=== PATIENT | male | born 1975 | race Caucasian/White ===

== ENCOUNTER 2016-11-18 14:34 | Outpatient (CLI) | payer BC ==
[2014-06-25 17:21] VITALS: BP 133/75
[2016-11-19 01:57] LABS: VITAMIN D, 25-HYDROXY 21 ng/mL (30-100)
== END 2016-11-18 14:50 ==
LOC: LAB 14:34
PROVIDERS: ATTEND Physician Assistant
DX: R53.83 Other fatigue (principal); R06.02 Shortness of breath
CPT/HCPCS: 36415; 82306; 82607; 83735; 86140

== ENCOUNTER 2016-11-19 14:41 | Outpatient (CLI) | payer BC ==
[2014-06-25 17:21] VITALS: BP 133/75
[2016-11-19] MEDS ORDERED: ALBUTEROL SULFATE 2.5 MG/3 ML AMPUL.NEB NEB ONE (15:00)
== END 2016-11-19 14:45 | disposition home or self-care (01) ==
LOC: RT 14:41
PROVIDERS: ATTEND Physician Assistant
DX: R06.02 Shortness of breath (principal)
CPT/HCPCS: 94060

== ENCOUNTER 2017-03-05 07:54 | Outpatient (CLI) | payer BC ==
[2014-06-25 17:21] VITALS: BP 133/75
[2017-03-05 08:08] LABS: BASOPHILS % 0.9 (0.0-1.5); EOSINOPHILS % 2.2 % (0.0-6.8); MEAN CORPUSCULAR HEMOGLOBIN 30.5 pg (28.0-34.0); MEAN CORPUSCULAR VOLUME 85.7 fl (80.0-100.0); MONOCYTES % 6.2 % (0.0-11.0); NEUTROPHILS # 7.2 # k/uL (1.4-7.7)
[2017-03-05 08:47] LABS: eGFR (African) > 60; eGFR (Non-African) > 60
== END 2017-03-05 07:55 ==
LOC: LAB 07:54
PROVIDERS: ATTEND Physician Assistant
DX: E66.9 Obesity, unspecified (principal); R53.83 Other fatigue; Z00.00 Encounter for general adult medical examination without abnormal findings; Z68.43 Body mass index [BMI] 50.0-59.9, adult; E55.9 Vitamin D deficiency, unspecified
CPT/HCPCS: 36415; 80053; 80061; 82306; 84443; 85025

== ENCOUNTER 2017-09-09 08:53 | Outpatient (CLI) | payer BC ==
[2014-06-25 17:21] VITALS: BP 133/75
[2017-09-09 09:29] LABS: eGFR (African) > 60; eGFR (Non-African) > 60
[2017-09-09 09:37] LABS: BASOPHILS % 0.6 (0.0-1.5); EOSINOPHILS % 2.5 % (0.0-6.8); MEAN CORPUSCULAR HEMOGLOBIN 30.3 pg (28.0-34.0); MEAN CORPUSCULAR VOLUME 88.6 fl (80.0-100.0); MONOCYTES % 3.5 % (0.0-11.0)
== END 2017-09-09 08:54 ==
LOC: LAB 08:53
PROVIDERS: ATTEND Physician Assistant
DX: E78.00 Pure hypercholesterolemia, unspecified (principal); R06.01 Orthopnea; E66.9 Obesity, unspecified; R05 Cough
CPT/HCPCS: 36415; 80053; 80061; 83036; 83880; 85025

== ENCOUNTER 2017-10-17 11:12 | Outpatient (CLI) | payer BC ==
[2014-06-25 17:21] VITALS: BP 133/75
--- NOTE | 2017-10-17 19:28 | Diagnostic Imaging Report ---
GOMEZ NAVAS [facility] [address] [facility] [address] Report Submission Date: October 17, 2017 11:46:40 AM CDT Patient Study Name: JOCE PLUMMER Date: October 17, 2017 11:23:26 AM CDT Modality Type: DX Gender: M Description: SHOULDER : 77 Institution: [facility] Physician: GOMEZ NAVAS Examination: Plain film right shoulder History: RT SHOULDER, PAIN IN RT SHOULDER AFTER PULLING INJURY A WEEK AGO (Hx) Comparison exams: None provided Findings: 3 views of the right shoulder demonstrate normal cortical margins. No evidence for fracture or dislocation. Acromioclavicular joint degenerative changes. No soft tissue abnormality Impression: Acromioclavicular joint degenerative changes. No acute osseous process. If suspect soft tissue injury, consider obtaining MRI to further evaluate. Electronically signed on October 17, 2017 11:46:40 AM CDT by: Amrit SILVESTRE
== END 2017-10-17 12:35 ==
LOC: RAD 11:12
PROVIDERS: ATTEND Physician Assistant
DX: M25.511 Pain in right shoulder (principal); R29.898 Other symptoms and signs involving the musculoskeletal system
CPT/HCPCS: 73030

== ENCOUNTER 2018-01-29 09:29 | Outpatient (CLI) | payer OTHER ==
[2014-06-25 17:21] VITALS: BP 133/75
== END 2018-01-29 09:30 ==
LOC: RAD 09:29
PROVIDERS: ATTEND Physician Assistant
DX: R53.83 Other fatigue (principal); W57.XXXA Bitten or stung by nonvenomous insect and other nonvenomous arthropods, initial encounter; Y92.9 Unspecified place or not applicable; Y93.9 Activity, unspecified; Y99.9 Unspecified external cause status
CPT/HCPCS: 36415; 84443; 86618; 86666; 86757

== ENCOUNTER 2018-02-03 09:25 | Outpatient (CLI) | payer OTHER ==
[2014-06-25 17:21] VITALS: BP 133/75
--- NOTE | 2018-02-03 16:25 | Diagnostic Imaging Report ---
GOMEZ NAVAS [facility] [address] [facility].[address] [address] Report Submission Date: Feb 03, 2018 10:50:23 AM CDT Patient Study Name: JOCE PLUMMER Date: Feb 03, 2018 9:53:07 AM CDT Modality Type: US Gender: M Description: US RUQ : 77 Institution: [facility] Physician: GOMEZ NAVAS Examination: Ultrasound gallbladder History: Ruq pain and nausea Findings: Sonographic evaluation of the right upper quadrant demonstrates a limited examination due to poor transducer penetration. Gallbladder without definite stones or sludge. Gallbladder wall does not appear to be thickened. Common bile duct not visualized. No intrahepatic biliary dilation. Liver demonstrates increased echogenicity. No mass or cyst. Right kidney without obvious cortical abnormality. No hydronephrosis. Pancreatic region without gross irregularity. Impression: Limited examination. No definite gallstone. Mildly fatty liver. Electronically signed on Feb 03, 2018 10:50:23 AM CDT by: Amrit SILVESTRE
== END 2018-02-03 09:26 ==
LOC: RAD 09:25
PROVIDERS: ATTEND Physician Assistant
DX: R10.11 Right upper quadrant pain (principal)
CPT/HCPCS: 76705

== ENCOUNTER 2018-03-02 12:37 | Outpatient (CLI) | payer OTHER ==
[2014-06-25 17:21] VITALS: BP 133/75
--- NOTE | 2018-03-03 11:40 | OP Clinic Progress Note ---
SUBJECTIVE: Carol Good is a 43-year-old male who was seen in the clinic recently for a left great ingrown toenail. The patient has had pain and discomfort with this toe along the medial border for a little while now. The patient has elected to come today for an in-office procedure to remove the medial border of the left great toenail with a small surgical procedure. We discussed the patient's smoking status currently and he states that he has not smoked today and I encouraged him strongly to not smoke for the next week to [id number] while we try and heal this wound, as I am concerned for healing potential at this time. We discussed the importance of not smoking and that I would prefer to wait and not do the procedure yet if it is not very painful for him at this time, so that we can have more time not smoking before doing the procedure. The patient has had lots of pain, however, and he wishes to go forward with the procedure at this time understanding the risks of nonhealing and infection due to the smoking. His vital signs show a heart rate of 93, BP: 153/99, R: 18, T: 97.6 degrees. Oxygen saturation is 94%. Pain is zero out of 10. We discussed the blood pressure and the patient states that last time it was slightly high too and then when he went to a subsequent appointment, it was low, and he believes that it is just due to nervousness. We discussed this at length together. The patient does not admit to any fevers, chills, nausea, vomiting, shortness of breath, or chest pain. OBJECTIVE: Vascular Exam: There is 2+ dorsalis pedis and posterior tibial artery left foot pulses. Capillary refill time was less than 3 seconds to the toes of the left foot. No edema is noted of the left foot. Dermatologic Exam: There is a slight bit of hyperkeratotic tissue noted at the distal medial border of the left great toenail area. There is no erythema and there is no open lesions or other hyperkeratoses noted. Musculoskeletal Exam: There is pain on palpation noted to the medial border of the left great toenail at this time. There are no other gross abnormalities noted to the left foot. Neurological Exam: Light touch sensation is intact to the toes of the left foot. ASSESSMENT: 1. Onychocryptosis of left great toenail medial border, noninfected. 2. Smoker. Consent was obtained after having discussed risks and benefits of this procedure with the patient, especially with his smoking status, and the patient has agreed to go forward with the procedure at this time. Consent was signed and placed in the chart. PROCEDURE PERFORMED: Left great toenail, partial toenail medial border avulsion. DESCRIPTION OF PROCEDURE: The left great toe was swabbed with alcohol and injected with 6 mL of a 1:1 mix of 2% lidocaine plain and 0.5% Marcaine plain. On the order sheet, it shows 5 and 5 for those, but we only used 6 total. This was injected and the patient, once after obtaining anesthesia about the toe, was then prepped with Betadine to the left great toe. At this time, the left great toenail medial border was then avulsed utilizing an Setswana Anvil and hemostat and it was checked to make sure that there was no remaining toenail left in that spot. As it was free of any toenail, the site was flushed with copious amount of normal saline. This site was then dressed with triple antibiotic ointment, 4 X 4 gauze, 2-inch Celestino, and 1-inch Coban. Pressure was held to obtain hematosis about the left great toe. The patient tolerated the procedure and anesthesia well. The patient was given instructions regarding removing the bandages tomorrow and washing the foot daily and drying it after a shower. The patient is to dry the toe and apply antibiotic ointment and a Band-Aid daily. The patient was notified that he is not allowed to use his boot today. PLAN: The patient will follow up with us in the clinic in a week to make sure that there is no signs of infection. NEW MATERIALS USED: 1. 2% lidocaine plain. I used 3 mL. 2. 0.5% Marcaine plain. I used 3 mL. 3. Two-inch Celestino. 4. Four-inch gauze. cc: Dr. Delvin SILVESTRE
== END 2018-03-02 12:40 ==
LOC: POD 12:37
PROVIDERS: ATTEND Podiatrist Foot & Ankle Surgery
DX: L60.0 Ingrowing nail (principal); F17.210 Nicotine dependence, cigarettes, uncomplicated
CPT/HCPCS: 11730

== ENCOUNTER 2018-04-28 09:48 | Outpatient (CLI) | payer OTHER ==
[2014-06-25 17:21] VITALS: BP 133/75
[2018-04-28 10:29] LABS: eGFR (Non-African) > 60
== END 2018-04-28 09:50 ==
LOC: LAB 09:48
PROVIDERS: ATTEND Physician Assistant
DX: R73.9 Hyperglycemia, unspecified (principal)
CPT/HCPCS: 36415; 80053; 83036

== ENCOUNTER 2018-07-23 11:31 | Outpatient (CLI) | payer OTHER ==
[2014-06-25 17:21] VITALS: BP 133/75
[2018-07-23 11:45] LABS: BASOPHILS % 1.2 (0.0-1.5); EOSINOPHILS % 2.9 % (0.0-6.8); MEAN CORPUSCULAR HEMOGLOBIN 30.5 pg (28.0-34.0); MONOCYTES % 5.7 % (0.0-11.0); NEUTROPHILS # 6.7 # k/uL (1.4-7.7)
[2018-07-23 12:20] LABS: eGFR (Non-African) > 60
--- NOTE | 2018-07-23 13:12 | Diagnostic Imaging Report ---
FATUMA JONES [facility] [address] [facility] [address] [address] Report Submission Date: Jul 23, 2018 12:52:55 PM POST PRODUCTION ASSISTANT Patient Study Name: JOCE PLUMMER Date: Jul 23, 2018 11:49:51 AM POST PRODUCTION ASSISTANT Modality Type: DX Gender: M Description: CHEST 2VIEW : 77 Institution: [facility] Physician: FATUMA JONES Examination: PA and lateral chest. History: Evaluate lung lang. CHEST PAIN AND CONGESTION X1 MONTH, SMOKER Comparison exam: None available. Findings: PA and lateral views of the chest demonstrates a normal cardiac and mediastinal silhouette. No focal infiltrate. No blunting of the costophrenic margins. Osseous structures are appropriate for age. Impression: No acute pulmonary process. Electronically signed on Jul 23, 2018 12:52:55 PM POST PRODUCTION ASSISTANT by: Amrit SILVESTRE
== END 2018-07-23 11:33 ==
LOC: LAB 11:31
PROVIDERS: ATTEND Family Medicine
DX: R06.00 Dyspnea, unspecified (principal); R53.83 Other fatigue
CPT/HCPCS: 36415; 71046; 80053; 83880; 84443; 85025

== ENCOUNTER 2018-07-27 09:57 | Outpatient (CLI) | payer OTHER ==
[2014-06-25 17:21] VITALS: BP 133/75
--- NOTE | 2018-07-27 11:51 | Diagnostic Imaging Report ---
FATUMA JONES [facility] [address] [facility] [address] [address] Report Submission Date: Jul 27, 2018 11:43:04 AM IT TRAINING SPECIALIST Patient Study Name: JOCE PLUMMER Date: Jul 27, 2018 10:49:27 AM IT TRAINING SPECIALIST Modality Type: US Gender: M Description: US DUPLEX CAROTID BILATERAL : 77 Institution: [facility] Physician: FATUMA JONES Exam: Bilateral carotid Doppler study. History: Dizziness. Doppler interrogation and color Doppler imaging of the carotid systems bilaterally are submitted. On the right side no intimal thickening or plaque is identified. The internal carotid artery peak systolic flow velocity measurement is 50 cm/s. The internal carotid artery, carotid artery ratio is 0.7. Doppler waveforms are normal configuration. Color Doppler imaging reveals no turbans of flow. Flow is antegrade in the vertebral artery. On the left side no intimal thickening or plaque is identified. The internal carotid artery peak systolic flow velocity measurement is 121 cm/s. The internal carotid artery, carotid artery ratio is 1.6. Doppler waveforms are normal configuration. Color Doppler imaging reveals no turbans of flow. Flow is antegrade vertebral artery. Impression: No hemodynamically significant stenosis. Electronically signed on Jul 27, 2018 11:43:04 AM IT TRAINING SPECIALIST by: Valdemar SILVESTRE
== END 2018-07-27 10:00 ==
LOC: RAD 09:57
PROVIDERS: ATTEND Family Medicine
DX: R42 Dizziness and giddiness (principal); Z82.49 Family history of ischemic heart disease and other diseases of the circulatory system
CPT/HCPCS: 93880

== ENCOUNTER 2019-03-31 10:48 | Outpatient (CLI) | payer OTHER ==
[2014-06-25 17:21] VITALS: BP 133/75
== END 2019-03-31 10:53 ==
LOC: LAB 10:48
PROVIDERS: ATTEND Nurse Practitioner Family
DX: R73.9 Hyperglycemia, unspecified (principal)
CPT/HCPCS: 36415; 83036